=== PATIENT | female | born 1985 | race Caucasian/White ===

== ENCOUNTER 2017-07-06 08:03 | Inpatient (IN) ==
[2017-07-06] MEDS ORDERED: Ringers Solution, Lactated 1,000 ML ONE ×2 (08:41→11:50)
[2017-07-06] MEDS ORDERED: Oxytocin 20 units/ LR 1000 mL 20 UNIT/1,000 ML BAG IVC ONE (08:49)
[2017-07-06] MEDS ORDERED: CeFAZolin Premix DUPLEX 2,000 MG/50 ML BAG IVPB ONE (08:49)
[2017-07-06] MEDS ORDERED: Metoclopramide 10 MG/2 ML VIAL IVP ONE ×2 (08:49→12:05)
[2017-07-06] MEDS ORDERED: Famotidine 20 MG/2 ML VIAL IVP ONE ×2 (08:49→12:05)
[2017-07-06 08:59] LABS: Basophils # 0.1 K/mcL (0.0-0.2); Basophils % 0.4 %; Eosinophils # 0.1 K/mcL (0.0-0.6); Eosinophils % 0.6 %; Hematocrit 40.9 % (35.3-44.9); Hemoglobin 14.2 g/dL (11.5-15.4); Immature Granulocytes % 0.5 % (0-4); Lymphocytes # 2.8 K/mcL (0.6-4.6); Lymphocytes % 24.8 %; Mean Corpuscular HGB Conc 34.7 g/dL (31.6-35.5); Mean Corpuscular Hemoglobin 31.3 pg (28.0-33.3); Mean Corpuscular Volume 90.1 fL (83.0-100.0); Mean Platelet Volume 11.4 fL (9.4-12.4); Monocytes # 0.7 K/mcL (0.0-1.3); Monocytes % 5.7 %; Neutrophils # 7.7 K/mcL (1.6-8.9); Platelet Count 195 K/mcL (140-400); Red Blood Count 4.54 M/mcL (3.82-4.97); Red Cell Distribution Width 13.2 % (11.5-14.5)
[2017-07-06] MEDS ORDERED: Oxytocin 20 units/ LR 1000 mL 20 UNIT/1,000 ML BAG IVC SCH ×2 (09:00→13:17)
--- NOTE | 2017-07-06 09:07 | OB/GYN History & Physical ---
Date of Encounter: 07/06/17 Time of Encounter: 09:00 Assessment and Plan (1) 38 weeks gestation of Current visit: Yes Status: Acute (2) Delivery by section at 37-39 weeks of gestation due to labor Current visit: Yes Status: Acute NST demonstrated +decels that have since stabilized VSS Admit for repeat C/S by Dr. Marshall Pitocin for induction of labor Epidural when requested Anticipate C/S in the afternoon Continue close NST monitor (3) Non-stress test reactive on surveillance Current visit: Yes Status: Acute Baseline 140 bpm/ moderate/ +accels/ +decels noted at admission that have since receded Expect for repeat c/s by Dr. Marshall in the afternoon (4) Hypertension affecting in third trimester Current visit: No Status: Acute History of hypertension affecting in third trimester. Currently VSS. Outpatient labs reviewed and normal. Continue to monitor closely. Plan per repeat c/s History of Present Illness Chief complaint: Contractions HPI: Ms. Rice is a 32 year old female 0 0 1 at 38 weeks and 1 day with history of previous C/S presents to L&D with contractions every 4-5 minutes for the last 3 hours. She admit to active contractions every 5 minutes with movement, denies vaginal bleeding or leakage of fluid. Patient's has been complicated with hypertension affecting in third trimester, Rubella negative, and complaints of pruritis since 06/21/17. She denies vision changes, f/c/n/v, dysuria. Blood type: A+ GBS: negative HIV Ab: nonreactive Treponema Pallidum: negative Rubella IgG antibody: negative Varicella IgG: Positive Hep B: Nonreactive Flu vaccination on 04/29/17 agree with above: Patient is a 32-year-old 2 para 1 at 38-1/7 weeks who presented with complaint of contractions. Patient is a scheduled in 1 week. Patient upon arrival to labor and delivery was noted having decelerations. We in the process of getting the patient set up for a repeat sections and tones did improve and we decided to wait and do in a nonemergent fashion. Patient is michele every couple minutes. Past Med Surg Social Fam HX - Past Medical History Medical history: no medical history Psychiatric history: anxiety - Past Surgical History Surgical History: no surgical history - Social History Smoking Status: Former smoker Alcohol use: none Drug use: none - Family History Mother Adopted: No Living Status: Still Living Hx Family Cardiac Disorders: Yes (htn) Hx Family Respiratory Disorders: Yes (grandfather had lung ds) Hx Family Cancer: No Hx Family GI Disorders: (grandfather had colostomy) Hx Family Endocrine Disorder: No Hx Family Neuromuscular Disorders: No Hx Family Neurologic Disorders: No Hx Family HEENT Disorders: No Hx Family Autoimmune Disorders: No Obstetrical History - Pregnancies : 2 Para: 1 Term: 1 : 0 Ab's: 0 Livin Medications and Allergies Pnv Plus Multivit Tab 1 tab PO DAILY 07/13/15 [History] 3 Allergy/AdvReac Type Severity Reaction Status Date / Time No Known Allergies Allergy Verified 07/06/17 08:32 Review of System OB - Muscloskeletal Musculoskeletal: bilateral: foot swelling - Integumentary Integumentary: pruritus (bilateral lower extremities ) Exam - Constitutional Constitutional: well developed, well nourished, no acute distress, average body habitus - HEENT HEENT: Normocephaly, Mucus Membranes Moist - Neck Neck exam: normal inspection - Lungs Respiratory exam: CTAB - Cardiovascular Cardiovascular exam: RRR - Abdomen Abdomen: Present: bowel sounds normal - Extremities Extremities exam: pedal edema (pitting edema 2+ bilateral lower extremities ), radial pulses palpable and symmetrical Deep Tendon Reflex Grade: 2+ Normal - Uterus Uterus exam: Present: normal size (Fundus soft and nontender ) Results Result Diagrams: 07/06/17 08:40 07/06/17 08:40 Abnormal lab results WBC 11.4 K/mcL (4.3-11.1) H 07/06/17 08:40 All other labs normal. - VTE Reasons for not Prescribing Prophylaxis: Treatment not Indicated - Low risk for VTE
[2017-07-06 09:10] LABS: Amphetamine Screen,Urine Negative ng/mL (Cutoff=1000); Barbiturate Screen,Urine Negative ng/mL (Cutoff=200); Benzodiazepines Screen,Urine Negative ng/mL (Cutoff=200); Cannabinoid Screen,Urine Negative ng/mL (Cutoff = 50); Cocaine Screen,Urine Negative ng/mL (Cutoff= 300); Opiate Screen,Urine Negative ng/mL (Cutoff=300); Phencyclidine Screen,Urine Negative ng/mL (Cutoff=25)
[2017-07-06 09:14] LABS: Alanine Aminotransferase 10 Units/L (7-52); Aspartate Amino Transferase 16 Units/L (13-39); BUN/Creatinine Ratio 14 (6-26); Blood Urea Nitrogen 10 mg/dL (6-20); Lactate Dehydrogenase 165 Units/L (140-271); Uric Acid 5.9 mg/dL (2.3-7.6); eGFR For African Americans > 60 (> 60); eGFR For Non-African Americans > 60 (> 60)
[2017-07-06] MEDS ORDERED: EPHEDrine 50 MG/ML VIAL ONE (11:17)
[2017-07-06] MEDS ORDERED: Morphine Sulfate/PF 5mg/10mL Vial ONE (11:17)
[2017-07-06] MEDS ORDERED: *HR* FentaNYL (PF) 100 MCG/2 ML VIAL ONE (11:18)
[2017-07-06] MEDS ORDERED: *HR* Oxytocin 10 UNIT/ML VIAL IM ONE (11:18)
--- NOTE | 2017-07-06 11:24 | OB Labor Progress Note ---
Date of Encounter: 07/06/17 Time of Encounter: 11:20 Labor Progress Note - Subjective Subjective: Baby had another deceleration down into the 70s for approximately 10 minutes did return to baseline. Patient was prepped for a repeat section now. - Cervix Cervix: cl/50/-3 - Heart Tones Heart Tones: heart tones 140s with decelerations down into the 70s for 3 minutes back to baseline - Colona Colona: Contractions irregular every 3-5 minutes. - Plan Plan: Patient will be prepped for a repeat section
[2017-07-06] MEDS ORDERED: Dexamethasone 4 MG/ML VIAL ONE (12:24)
[2017-07-06] MEDS ORDERED: Ketorolac 30 MG/ML VIAL ONE (12:24)
[2017-07-06] MEDS ORDERED: Ondansetron 4 MG/2 ML VIAL ONE (12:24)
[2017-07-06] MEDS ORDERED: Acetaminophen IV 1,000 MG/100 ML INFUS..BTL IVPB ONE (12:39)
--- NOTE | 2017-07-06 12:59 | OB/GYN Procedure Note ---
Section - Date of procedure: 07/06/17 Preop diagnosis: other (Intrauterine at 38-1/7 weeks, active labor, previous section 1, variable decelerations.) Post-op diagnosis: same (With oligohydramnios and nuchal cord 2) Procedure: repeat low transverse Surgeon: Girish Marshall Estimated blood loss (cc): 200 Was there an certified ophthalmic assistant present: Yes Wastewater Analyst Lab Analyst: Gurmeet Monsivais ([id number]) Anesthesiologist: Shaye Patel Historical Archeologist: Huong Escalona Anesthesia Type: General section complications: none Disposition: L&D Recovery Room Specimens: Placenta - Infant (s) Infant A Delivery Date: 07/06/17 Delivery Time: 12:16 Presentation: vertex Position: DAVINA Route of delivery: other (section) Gender: Male Viability: Viable Pounds: 5 Ounces: 6 Gram Weight: 2.44 kg at 1 minute: 9 at 5 minutes: 9 Shoulder Dystocia: not encountered Placenta: spontaneous Cord: nuchal cord (x2), nuchal reduced - Narrative Narrative: Patient is a 32-year-old 2 para 1 at 38week she will present to labor and delivery with complaint of contractions starting approximately 6 AM this morning. Upon arrival to labor and delivery patient was noted be michele but had decelerations. She was a scheduled repeat section in 1 week. The tones did return to normal and patient was prepped for repeat section prior to taking her into the operating room patient had another deep deceleration approximately 3 minutes did return to normal we took her to the operating room with tones. Normal so we did attempt to do a spinal during the spinal anesthetic patient had another deceleration there have a difficult to get the spinal and and we advised anesthesia to stop and we just do a general. Procedure: Patient was taken the operating room where she was placed in the dorsal supine position with leftward tilt prepped and draped in usual fashion. Timeout was then obtained. Then general anesthesia was administered once asleep a Pfannenstiel incision was made with a scalpel and carried down through the underlying tissue to the fascia was identified. Fascia was nicked in midline extended laterally with Herrera scissors. The superior and inferior edges of fascia were then grasped tented up and dissected off the rectus muscles. Rectus muscles were in the midline parietal peritoneum was identified tented up and entered sharply. This is extended superiorly and inferiorly with Metzenbaum scissors. Bladder blade was inserted the vesicouterine peritoneum was then identified tented up and entered sharply. The bladder flap was created digitally the lower uterine segment was incised with the scalpel and extended laterally with digital manipulation. At this time it was noted there was no fluid membranes were ruptured 's head was delivered was a nuchal cord 2 loose and reduced. The was fully delivered the cord was clamped and cut was handed off to awaiting pediatric team. blood was needed percent was then spontaneously delivered with a three-vessel cord. Uterus was exteriorized cleared of all clots and debris and then the lower uterine segment was closed using a 0 Vicryl in a running locking stitch by a 2 layer closure. Good hemostasis was noted ovaries and tubes were normal. Uterus was returned to the abdomen and gutters were cleansed of all clots and debris then copiously irrigated with no active bleeding. The fascia was then closed using a #1 stratafix in a running stitch and skin was closed using a 4-0 Vicryl in a subcuticular manner. A PRIMEO dressing was applied and the patient was taken to the recovery room in stable condition. All needles lap sponge counts were correct 3 she did receive preoperative antibiotics. Patient will be started on a Dilaudid COMP FIELD CASE MANAGER pump.
[2017-07-06] MEDS ORDERED: Simethicone 80 MG TAB.CHEW PO PRN (13:17)
[2017-07-06] MEDS ORDERED: Ringers Solution, Lactated 1,000 ML IVC SCH (13:17)
[2017-07-06] MEDS ORDERED: Ondansetron 4 MG/2 ML VIAL IVP PRN (13:17)
[2017-07-06] MEDS ORDERED: *HR* HYDROmorphone 20 MG/20 ML PCA IVC PRN (13:17)
[2017-07-06] MEDS ORDERED: Sennosides 8.6 MG TABLET PO PRN (13:17)
[2017-07-06] MEDS ORDERED: Metoclopramide 10 MG/2 ML VIAL IVP PRN (13:17)
[2017-07-06] MEDS: Oxytocin 20 units/ LR 1000 mL 20 UNIT/1,000 ML BAG IVC SCH (16:22)
[2017-07-07] MEDS: Ibuprofen 600 MG TABLET PO PRN ×4 (00:37→20:57)
[2017-07-07] MEDS: Oxytocin 20 units/ LR 1000 mL 20 UNIT/1,000 ML BAG IVC SCH (00:37)
[2017-07-07 04:53] LABS: Basophils % 0.2 %; Eosinophils % 0.2 %; Hematocrit 33.6 % (35.3-44.9); Immature Granulocytes % 0.4 % (0-4); Lymphocytes # 2.6 K/mcL (0.6-4.6); Lymphocytes % 18.7 %; Mean Corpuscular HGB Conc 34.5 g/dL (31.6-35.5); Mean Corpuscular Hemoglobin 31.4 pg (28.0-33.3); Mean Corpuscular Volume 90.8 fL (83.0-100.0); Mean Platelet Volume 11.3 fL (9.4-12.4); Monocytes % 6.9 %; Neutrophils # 10.1 K/mcL (1.6-8.9); Platelet Count 162 K/mcL (140-400); Red Cell Distribution Width 13.2 % (11.5-14.5); Segmented Neutrophils % 73.6 %
[2017-07-07 04:59] LABS: Hemoglobin 11.6 g/dL (11.5-15.4)
[2017-07-07] MEDS: Prenatal Vit/FA 1 EACH TABLET PO SCH (08:53)
--- NOTE | 2017-07-07 10:00 | OB/GYN Progress Note ---
Date of Encounter: 07/07/17 Time of Encounter: 09:58 - Assessment and Plan (1) Delivery by section at 37-39 weeks of gestation due to labor Current Visit: Yes Status: Acute POD#1 Continue routine PP care support Continue PO pain meds Anticipate discharge home tomorrow (2) S/P section Current Visit: Yes Status: Acute Subjective - Subjective Interval history: Pt reports pain well controlled with DIELECTRIC MACHINE OPERATOR and PO medications Tolerating regular diet Voiding independently Passing flatus but no BM yet well Lochia light Patient reports: appetite normal, voiding normally, pain well controlled, ambulating normally [place]: doing well, nursing well Objective - Vital Signs Latest vital signs: Vital Signs Temp Pulse Resp BP Pulse Ox 07/07/17 07:55 98.0 F 60 16 115/69 98 07/07/17 03:20 98.2 F 69 16 113/76 98 07/07/17 00:05 98.1 F 69 14 113/69 98 07/06/17 19:15 97.8 F 79 16 131/81 95 07/06/17 16:52 97.6 F 65 16 128/77 97 07/06/17 16:10 97.5 F L 66 16 129/80 97 07/06/17 15:30 98.1 F 81 18 132/82 95 Intake and Output 07/06/17 07/07/17 07/07/17 23:59 07:59 15:59 Intake Total 240 / 240 1775 / 1775 Output Total 900 / 900 550 / 550 Balance -660 / -660 1225 / 1225 Intake: IV Fluids 975 / 975 Pitocin 20 unit In 1,000 ml @ 975 / 975 125 mls/hr IVC .Q8H [facility] Rx#: [id number] Oral 240 / 240 800 / 800 Output: Estimated Blood Loss 200 / 200 Catheter 700 / 700 550 / 550 Other: Weight 84.232 kg Patient Weight 07/07/17 23:59 Weight 84.232 kg - Exam Lungs: bilateral: normal Chest: Normal S1, Normal S2 Extremities: Present: normal Abdomen: Present: normal appearance, soft Incision: Present: normal, dry, intact Uterus: Present: normal, firm Fundal Height: 1 (below) - Labs Labs: Laboratory Results - last 24 hr 07/07/17 04:42 WBC 13.8 H RBC 3.70 L Hgb 11.6 D Hct 33.6 L MCV 90.8 MCH 31.4 MCHC 34.5 RDW 13.2 Plt Count 162 MPV 11.3 Immature Gran % 0.4 Seg Neutrophils % 73.6 Lymphocytes % 18.7 Monocytes % 6.9 Eosinophils % 0.2 Basophils % 0.2 Neutrophils # 10.1 H Lymphocytes # 2.6 Monocytes # 1.0 Eosinophils # 0.0 Basophils # 0.0
[2017-07-07] MEDS: *HR* OxyCODONE/APAP 5/325 TABLET PO PRN ×2 (11:27→18:38)
[2017-07-08] MEDS: *HR* OxyCODONE/APAP 5/325 TABLET PO PRN ×2 (00:35→10:26)
[2017-07-08] MEDS: Ibuprofen 600 MG TABLET PO PRN (06:55)
[2017-07-08 08:19] VITALS: BP 128/81
[2017-07-08] MEDS: Prenatal Vit/FA 1 EACH TABLET PO SCH (10:26)
--- NOTE | 2017-07-08 10:28 | Discharge Summary ---
Date of Encounter: 07/08/17 Time of Encounter: 10:24 - Discharge Diagnosis (1) S/P section Priority: Primary Status: Acute Comments: Patient states pain well nourished on by mouth pain medications, tolerating regular diet, voiding without difficulties. Desires discharge - Discharge Medications Prescriptions: OxyCODONE/APAP 5/325 [Percocet 5/325 MG] 1 each PO Q4HR PRN 7 Days #24 tablet PRN Reason: Moderate pain 4-6 Ibuprofen [Motrin] 600 mg PO Q6HR PRN #60 tablet PRN Reason: Cramping Docusate [Colace] 100 mg PO BID #60 capsule Home Medications: Docusate [Colace] 100 mg PO BID #60 capsule 07/08/17 [Rx] Ibuprofen [Motrin] 600 mg PO Q6HR PRN #60 tablet 07/08/17 [Rx] OxyCODONE/APAP 5/325 [Percocet 5/325 MG] 1 each PO Q4HR PRN 7 Days #24 tablet [Rx] Vit/FA 1 each PO DAILY tablet 07/08/17 [Rx] Simethicone [Gas-X] 80 mg PO TID PRN tab.chew 07/08/17 [Rx] Allergies/Adverse Reactions: 3 Allergy/AdvReac Type Severity Reaction Status Date / Time No Known Allergies Allergy Verified 07/06/17 08:32 Data Procedures and tests throughout hospitalization: Laboratory Tests 07/06/17 07/06/17 07/06/17 08:40 08:40 08:49 WBC 11.4 H RBC 4.54 Hgb 14.2 Hct 40.9 MCV 90.1 MCH 31.3 MCHC 34.7 RDW 13.2 Plt Count 195 MPV 11.4 Immature Gran % 0.5 Seg Neutrophils % 68.0 Lymphocytes % 24.8 Monocytes % 5.7 Eosinophils % 0.6 Basophils % 0.4 Neutrophils # 7.7 Lymphocytes # 2.8 Monocytes # 0.7 Eosinophils # 0.1 Basophils # 0.1 BUN 10 Creatinine 0.72 Est GFR ( Amer) > 60 Est GFR (Non-Af Amer) > 60 BUN/Creatinine Ratio 14 Uric Acid 5.9 AST 16 ALT 10 Lactate Dehydrogenase 165 Urine Opiates Screen Negative Ur Barbiturates Screen Negative Ur Phencyclidine Scrn Negative Ur Amphetamines Screen Negative U Benzodiazepines Scrn Negative Urine Cocaine Screen Negative U Marijuana (THC) Screen Negative 07/07/17 04:42 WBC 13.8 H RBC 3.70 L Hgb 11.6 D Hct 33.6 L MCV 90.8 MCH 31.4 MCHC 34.5 RDW 13.2 Plt Count 162 MPV 11.3 Immature Gran % 0.4 Seg Neutrophils % 73.6 Lymphocytes % 18.7 Monocytes % 6.9 Eosinophils % 0.2 Basophils % 0.2 Neutrophils # 10.1 H Lymphocytes # 2.6 Monocytes # 1.0 Eosinophils # 0.0 Basophils # 0.0 BUN Creatinine Est GFR ( Amer) Est GFR (Non-Af Amer) BUN/Creatinine Ratio Uric Acid AST ALT Lactate Dehydrogenase Urine Opiates Screen Ur Barbiturates Screen Ur Phencyclidine Scrn Ur Amphetamines Screen U Benzodiazepines Scrn Urine Cocaine Screen U Marijuana (THC) Screen Date of admission: 07/06/17 08:03 Primary care physician: Syed Julio MD Discharging clinician: Malu Smiley Anticipated date of discharge: 07/08/17 - Patient Status Disposition: Home, Self-Care Condition: Good Functional capacity at discharge: independent ambulation Overall status at discharge: patient is back to baseline - Discharge Instructions Follow Up With: Syed Julio MD [Primary Care Provider] - - Diet and Activity Activity: resume usual activities as tolerated Diet: regular diet Hospital Course Reason for admission: active labor, section Delivery: section Episiotomy: none Laceration: none Other procedures: none complications: none Discharge diagnosis: IUP at term delivered [place] baby: male Hospital course: Section - Date of procedure: 07/06/17 Preop diagnosis: other (Intrauterine at 38-1/7 weeks, active labor, previous section 1, variable decelerations.) Post-op diagnosis: same (With oligohydramnios and nuchal cord 2) Procedure: repeat low transverse Surgeon: Girish Marshall Estimated blood loss (cc): 200 Was there an financial assistant present: Yes Jigsaw Operator: Gurmeet Monsivais ([id number]) Anesthesiologist: Shaye Patel Salesperson Shoes: Huong Escalona Anesthesia Type: General section complications: none Disposition: L&D Recovery Room Specimens: Placenta - (s) Infant A Infant Delivery Date: 07/06/17 Infant Delivery Time: 12:16 Presentation: vertex Position: DAVINA Route of delivery: other (section) Gender: Male Viability: Viable Pounds: 5 Ounces: 6 Gram Weight: 2.44 kg at 1 minute: 9 at 5 minutes: 9 Shoulder Dystocia: not encountered Placenta: spontaneous Cord: nuchal cord (x2), nuchal reduced Stable and , appropriate for discharge. OAARS reviewed Time Attestation: Total time spent providing and/or coordinating discharge services: Time Spent: Less than 30 minutes - VTE Reasons for not Prescribing Prophylaxis: Treatment not Indicated - Low risk for VTE Documentation of Mechanical Device: Intermittent pneumatic compression device Exam - Constitutional Vitals: Temp Pulse Resp BP Pulse Ox 98.1 F 64 16 128/81 97 07/08/17 07:25 07/08/17 07:25 07/08/17 07:25 07/08/17 07:25 07/08/17 07:25 General appearance IM: A&O X 3 - Respiratory Respiratory exam: Present: CTAB - Cardiovascular Cardiovascular exam IM: Present: RRR - GI/Abdominal GI/Abdominal exam IM: normal bowel sounds, soft Incision: dressed - Uterus Position: At Umbilicus - Extremities Exam Extremities exam IM: Present: normal capillary refill, normal inspection - Neurological Exam Neurological exam: normal gait, oriented X3 - Psychiatric Additional comments: Reports good mood.
== END 2017-07-08 12:15 | disposition home or self-care (01) | DRG 765 ==
LOC: 1NENULAB → OBSVTOIN 08:03 → 1NENUOBS 15:26
PROVIDERS: ADMIT Obstetrics & Gynecology; ATTEND Obstetrics & Gynecology